=== PATIENT | female | born 1950 | race African-American/Black ===

== ENCOUNTER 2018-02-26 13:07 | Inpatient (IN) | payer MEDICARE, OTHER ==
[~2018-02-26] VITALS: Ht 160 cm; Wt 78.8 kg
--- NOTE | ~2018-02-26 | OP ---
PATIENT NAME: IFTIKHAR SIERRA MEDICAL RECORD: [id number] :51 LOCATION:D.M2 D.2128 ADMISSION DATE:02/26/18 SURGEON: ALE KING MD DATE OF OPERATION: 02/26/2018 OPERATION PERFORMED: Insertion of a left internal jugular HemoSplit tunneled dialysis catheter utilizing ultrasound guidance and fluoroscopy. Also, dressing change of left arm AV fistula and needle aspiration of bleb over the fistula proximal aneurysm. ANESTHESIA: Local per Dr. King with monitoring per BAKELITE MOLDER. 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 PREOPERATIVE NOTE: Ms. Sierra is a 67-year-old -Irish female with end-stage renal disease, who is on chronic hemodialysis in [place] on Thursday, Thursday and Thursday. She has had a fistula in her left arm, I believe this is a brachial translocated basilic vein fistula, which has served her well for a number of years. Over the past 2 weeks, though she has noted increasing size of aneurysms of the fistula, and yesterday despite multiple needle punctures they were unable to dialyze her and she had pain and sudden increase in size of the most proximal aneurysm and developed an area of epidermolysis with a formation of a bulla with dark fluid within it over the proximal aneurysm. She presented here to me through the Emergency Room. She is brought to the operating room today to place a HemoSplit catheter so that she can dialyze today. Plan is to go ahead and ligate the fistula and do whatever else is indicated. Had to be put on hold until tomorrow because of her hyperkalemia this morning. Under no sedation or anesthetic, the patient was placed in supine position and monitored per BAKELITE MOLDER. I examined the right side of the neck with ultrasound and found that the use of previous dialysis catheters had caused a very severe stenosis of that vein at the level of the clavicle. I examined her left side and found a very good internal jugular vein, very suitable for placement of the dialysis catheter. The left side of her neck and chest was then prepped and draped in a sterile manner. I infiltrated skin and the subcutaneous tissues with 1% lidocaine. I made a small incision at the base of the neck and then with ultrasound guidance and micropuncture technique, placed a needle and guidewire directly into the internal jugular vein. Subsequently, a Roadrunner wire was inserted and under fluoroscopy it was advanced into the inferior vena cava. I infiltrated the skin beneath the clavicle with lidocaine, made an incision there and passed a 23 cm long HemoSplit tunneled dialysis catheter through a subcutaneous tunnel up to the primary cervical incision. I then passed serial dilators over the wire under fluoroscopy and last a peelaway dilator introducer. The catheter was then advanced over the wire through the peel-away sheath into the right atrium and upper inferior vena cava. Both lumens were accessed and aspirated, free return of blood confirmed. They were then flushed with saline and last heparin locked. The catheter was sutured to the skin beneath the clavicle with 2-0 Prolene. The cervical wound was closed with interrupted inverted 3-0 Vicryl and Dermabond glue and that site was dressed with Maxorb Ag, Tegaderm and Cavilon skin prep. A standard chlorhexidine central venous dressing was applied over the catheter's entry site. Fluoroscopy demonstrated excellent positioning of the catheter and it was not necessary to do any additional postoperative chest x-ray. The patient may go on to dialysis today and hopefully will be in better electrolyte status for OPERATIVE REPORT [id number] IFTIKHAR SIERRA surgery under general anesthetic tomorrow morning. TRANSINT:[id number] Voice Confirmation ID: [id number] DOCUMENT ID: [id number] ALE KING MD at 0847 CC: MARCEL BAZAN [id number] DICTATION DATE: 02/27/18 1024 RN LONG TERM CARE: 02/27/18 1212 DIS IN 03/02/18 [facility] [address] [id number]
--- NOTE | ~2018-02-26 | OP ---
PATIENT NAME: IFTIKHAR SIERRA MEDICAL RECORD: [id number] :51 LOCATION:D.M2 D.2128 ADMISSION DATE:02/26/18 SURGEON: ALE KING MD DATE OF OPERATION: 02/28/2018 PREOPERATIVE DIAGNOSIS: Thrombosed, inflamed, infected left upper extremity AV fistula, brachial translocated basilic with potential impending rupture. POSTOPERATIVE DIAGNOSIS: Thrombosed, inflamed, infected left upper extremity AV fistula, brachial translocated basilic with potential impending rupture. OPERATION PERFORMED: Ligation of fistula in left arm and excision of fistula. SURGEON: Ale King MD ANESTHESIA: General with LMA per SEBD TEACHER. The patient's lacing string cutter in [place] is Dr. Oro. Local lacing string cutter attending her to this hospitalization is Lane Bazan MD PREOPERATIVE NOTE: Ms. Sierra is a 67-year-old -Mexican female who is on chronic hemodialysis in [place]. Dr. Oro is her lacing string cutter. She has done well with a left upper extremity brachial translocated basilic vein AV fistula. Only began having trouble, she says, about 2 weeks ago. 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 Two weeks ago, she began to have pain and increasing size of the aneurysms, and this past week, she suffered extravasation and has had intermittent bleeding from the puncture sites from last week and from the area of skin necrosis over the fistula. Yesterday, I placed a tunneled dialysis catheter so that she could dialyze. She was hyperkalemic yesterday. Today, she is brought back to the operating room with normal serum potassium level with plans to ligate and excise or evacuate this inflamed and infected fistula. Under anesthesia, the patient was prepped and draped in sterile manner. She is in supine position. I made an incision on the medial aspect of arm and elbow and exposed the neck of the graft. The cephalic vein just above the arterial anastomosis was circumferentially dissected and then doubly ligated with 2-0 silk. I then did the same at the upper end of the fistula in the upper third of the arm. I then made incisions so as to excise the underlying fistula and area of skin necrosis. I did this and obtained hemostasis with electrocautery and with few suture ligatures of Vicryl. The vein proximally and distally was divided and the specimen was sent to pathology. The wound was irrigated with saline and infiltrated and irrigated carefully with 0.25% Marcaine with epinephrine. I mobilized flaps in order to get a primary closure and the closure was done with interrupted inverted 3-0 Vicryl and sherice for skin. Nonadherent pressure dressing was applied and the patient, at that time, awakened and taken to the recovery room. Blood loss during the operation was insignificant, probably 50-100 cc. None was replaced intraoperatively. All sponges, instruments, and needles were accounted for. TRANSINT:[id number] Voice Confirmation ID: [id number] DOCUMENT ID: [id number] OPERATIVE REPORT [id number] IFTIKHAR SIERRA JAMES MD at 0847 CC: LANE BAZAN [id number] DICTATION DATE: 02/28/18 1058 DIRECT MAIL CLERK: 02/28/18 1205 DIS IN 03/02/18 [id number] [place] [address]
[2018-02-26 15:02] LABS: BASOPHILS 0.6 % (0-2); EOSINOPHILS 8.1 % (0-7); HEMATOCRIT 39.2 % (36.0-48.0); HEMOGLOBIN 13.5 g/dL (12-16); IMMATURE GRANULOCYTES 0.2 % (0-5); LYMPHOCYTES 29.4 % (15-50); MCH 30.7 pg (26.0-34.0); MCHC 34.4 g/dL (31.0-37.0); MCV 89.1 fL (80.0-100.0); MEAN PLATELET VOLUME 10.7 fL (7.4-10.4); MONOCYTES 5.8 % (2-11); NEUTROPHILS 55.9 % (40-80); PLATELET COUNT 138 10x3/uL (130-400); WBC 10.2 10x3/uL (4.8-10.8)
[2018-02-26 15:16] LABS: APTT 35.4 SECONDS (22.8-39.4); INR 1.06 (0.85-1.17); PROTIME 13.4 SECONDS (11.6-15.0)
[2018-02-26 15:26] LABS: ALBUMIN 3.6 g/dL (3.4-5.0); ANION GAP 21.2 mmol/L (8-16); BILIRUBIN - TOTAL 0.59 mg/dL (0.2-1.3); CALCIUM 9.2 mg/dL (8.5-10.1); CARBON DIOXIDE 23.3 mmol/L (21.0-32.0); CREATININE - SERUM 12.6 mg/dL (0.6-1.3); POTASSIUM - SERUM 5.5 mmol/L (3.5-5.1); PROTEIN - SERUM 8.7 g/dL (6.4-8.2)
[2018-02-26] MEDS ORDERED: NORVASC5 MG PO (15:48)
[2018-02-26] MEDS ORDERED: VITAMIN B-225 MG PO (15:50)
[2018-02-26] MEDS ORDERED: COLACE100 MG PO (15:51)
[2018-02-26] MEDS ORDERED: GLUCOTROL ER2.5 MG PO (15:52)
[2018-02-26] MEDS ORDERED: HYDROCODON-ACE1 EAC7 PO (15:53)
[2018-02-26] MEDS ORDERED: CHILDREN'S CLARI5 MG PO (15:53)
[2018-02-26] MEDS ORDERED: ATIVAN0.5 MG PO (15:54)
[2018-02-26] MEDS ORDERED: MECLIZINE HCL25 MG PO (15:55)
[2018-02-26] MEDS ORDERED: NEPHRO-VITE RX1 TAB PO (15:56)
[2018-02-26] MEDS ORDERED: RENVELA800 MG PO (15:57)
[2018-02-26] MEDS ORDERED: OCUVITE TABLET1 TA1 PO (15:57)
[2018-02-26] MEDS ORDERED: ZANTAC150 MG PO (15:58)
[2018-02-26] MEDS ORDERED: VITAMIN E400 UNI2 PO (15:59)
[2018-02-26] MEDS ORDERED: VITAMIN B-122500 MCG PO (18:10)
[2018-02-26] MEDS ORDERED: SENSIPAR30 MG PO (18:36)
[2018-02-27] VITALS: BP 174/86
[2018-02-27 00:12] VITALS: BMI 31.2
[2018-02-27 04:00] VITALS: BP 138/77
[2018-02-27 07:34] LABS: BASOPHILS 0.8 % (0-2); HEMATOCRIT 40.3 % (36.0-48.0); HEMOGLOBIN 13.8 g/dL (12-16); IMMATURE GRANULOCYTES 0.3 % (0-5); LYMPHOCYTES 22.9 % (15-50); MCH 30.6 pg (26.0-34.0); MCHC 34.2 g/dL (31.0-37.0); MCV 89.4 fL (80.0-100.0); MEAN PLATELET VOLUME 11.4 fL (7.4-10.4); RBC 4.51 10x6/uL (4.00-5.40); RDW 13.7 % (11.5-14.5); WBC 9.6 10x3/uL (4.8-10.8)
[2018-02-27 07:35] LABS: PLATELET COUNT 166 10x3/uL (130-400)
[2018-02-27 07:48] LABS: ANION GAP 20.1 mmol/L (8-16); CALCIUM 9.2 mg/dL (8.5-10.1); CREATININE - SERUM 13.4 mg/dL (0.6-1.3)
[2018-02-27 07:49] LABS: APTT 36.8 SECONDS (22.8-39.4); INR 1.14 (0.85-1.17); PROTIME 14.2 SECONDS (11.6-15.0)
[2018-02-27 07:51] LABS: POTASSIUM - SERUM 6.1 mmol/L (3.5-5.1)
[2018-02-27 07:59] VITALS: BP 146/89
[2018-02-27 11:06] VITALS: BP 132/98
[2018-02-27 11:34] VITALS: Ht 160 cm; Wt 78.8 kg
[2018-02-27 15:06] VITALS: BP 123/87
[2018-02-27 19:01] LABS: ANION GAP 17.2 mmol/L (8-16); CALCIUM 8.3 mg/dL (8.5-10.1); CARBON DIOXIDE 26.6 mmol/L (21.0-32.0); CREATININE - SERUM 7.2 mg/dL (0.6-1.3)
[2018-02-27 19:02] LABS: POTASSIUM - SERUM 3.8 mmol/L (3.5-5.1)
[2018-02-27 20:00] VITALS: BP 135/81
[2018-02-28] VITALS (16 sets, daily range): BP systolic 99–154; BP diastolic 54–70
[2018-02-28 05:09] LABS: BASOPHILS 0.6 % (0-2); EOSINOPHILS 8.3 % (0-7); HEMATOCRIT 35.4 % (36.0-48.0); HEMOGLOBIN 11.9 g/dL (12-16); IMMATURE GRANULOCYTES 0.3 % (0-5); LYMPHOCYTES 26.3 % (15-50); MCH 29.7 pg (26.0-34.0); MCHC 33.6 g/dL (31.0-37.0); MCV 88.3 fL (80.0-100.0); MEAN PLATELET VOLUME 10.9 fL (7.4-10.4); MONOCYTES 8.8 % (2-11); NEUTROPHILS 55.7 % (40-80); PLATELET COUNT 139 10x3/uL (130-400); RBC 4.01 10x6/uL (4.00-5.40); RDW 13.6 % (11.5-14.5); WBC 7.2 10x3/uL (4.8-10.8)
[2018-02-28 05:28] LABS: ANION GAP 13.7 mmol/L (8-16); CALCIUM 8.4 mg/dL (8.5-10.1); CARBON DIOXIDE 26.7 mmol/L (21.0-32.0); CREATININE - SERUM 10.7 mg/dL (0.6-1.3); POTASSIUM - SERUM 4.4 mmol/L (3.5-5.1)
[2018-03-01] VITALS: BP 88/48
[2018-03-01 04:00] VITALS: BP 95/48
[2018-03-01 08:47] VITALS: BP 99/52
[2018-03-01 13:06] VITALS: BP 106/62
[2018-03-01 20:00] VITALS: BP 112/60
[2018-03-02] VITALS: BP 88/49
[2018-03-02 08:33] VITALS: BP 123/66
[2018-03-02 11:14] LABS: HEP B CORE AB TOTAL Negative (Negative); HEPATITIS C ANTIBODY <0.1 (0.0-0.9)
== END 2018-03-02 17:04 | disposition home or self-care (01) | DRG 252 ==
LOC: D.ER 13:07 → D.M2 17:17
PROVIDERS: Emergency Medicine; Internal Medicine Nephrology; Surgery
PROC: 0JH63XZ Insertion of Tunneled Vascular Access Device into Chest Subcutaneous Tissue and Fascia, Percutaneous Approach (ICD-10-PCS; principal; 2018-02-26)
PROC: 05HN33Z Insertion of Infusion Device into Left Internal Jugular Vein, Percutaneous Approach (ICD-10-PCS; 2018-02-26)
PROC: B544ZZA Ultrasonography of Left Jugular Veins, Guidance (ICD-10-PCS; 2018-02-26)
PROC: B5141ZA Fluoroscopy of Left Jugular Veins using Low Osmolar Contrast, Guidance (ICD-10-PCS; 2018-02-26)
PROC: 5A1D70Z Performance of Urinary Filtration, Intermittent, Less than 6 Hours Per Day (ICD-10-PCS; 2018-02-27)
PROC: 05LF0ZZ Occlusion of Left Cephalic Vein, Open Approach (ICD-10-PCS; 2018-02-28)
PROC: 03B80ZZ Excision of Left Brachial Artery, Open Approach (ICD-10-PCS; 2018-02-28)
DX: T82.7XXA Infection and inflammatory reaction due to other cardiac and vascular devices, implants and grafts, initial encounter (principal); N18.6 End stage renal disease; T82.590A Other mechanical complication of surgically created arteriovenous fistula, initial encounter; I12.0 Hypertensive chronic kidney disease with stage 5 chronic kidney disease or end stage renal disease; E11.22 Type 2 diabetes mellitus with diabetic chronic kidney disease; Z99.2 Dependence on renal dialysis; E87.5 Hyperkalemia

== ENCOUNTER 2018-05-04 06:02 | Day surgery (SDC) | payer MEDICARE, OTHER ==
[~2018-05-04] VITALS: Ht 160 cm; Wt 80.3 kg
--- NOTE | ~2018-05-04 | CN ---
PATIENT NAME:IFTIKHAR SIERRA MEDICAL RECORD: [id number] : 52 LOCATION:[facility] ADMIT DATE: ACCOUNT: [id number] CONSULTING PHYSICIAN: FRIDA VILLELA MD REFERRING PHYSICIAN: MARCEL BAZAN MD DATE OF CONSULTATION: 05/04/2018 CARDIOLOGY CONSULT DIAGNOSES: 1. Preop evaluation. 2. Abnormal ECG. 3. Hypertension. 4. End-stage renal failure, on dialysis. HISTORY: Mrs. Sierra has cardiac symptoms of shortness of breath at approximately one block. She denies any chest pain or chest discomfort. Her EKG has ST-T abnormalities inferiorly. She is set for dialysis catheter today. REVIEW OF SYSTEMS: The patient reports easy bruising but reports no swollen glands. The patient reports no fever, no night sweats, no significant weight gain, no significant weight loss. No significant exercise tolerance. The patient reports no dry eyes, no irritation, no vision change. Patient reports no difficulty hearing and no ear pain. Patient reports no frequent nose bleeds or nose and sinus problems. Patient reports on arm pain on exertion. No shortness of breath while lying down. No history of heart murmur. Patient reports no cough, no wheezing or coughing up blood. Patient reports no abdominal pain, no vomiting. Normal appetite. No diarrhea and not vomiting blood. No nausea and no constipation. Patient reports no incontinence. No difficulty urinating. No hematuria. No increased frequency. Patient reports no muscle aches. No weakness, no arthralgias, no back pain. No swelling of the extremities. Patient reports no abnormal mole, no jaundice, no rashes. Reports no loss of consciousness. No weakness and no numbness. No seizures, dizziness, or headaches. The patient reports no depression, no sleep disturbance, feeling safe in a relationship and no alcohol abuse. Patient reports on fatigue. Reports no runny nose or sinus pressure. No itching, no hives, and no frequent sneezing. PHYSICAL EXAMINATION: GENERAL APPEARANCE: Well-nourished, well-developed, appears stated age. Level of distress, comfortable. PSYCHIATRIC: Mental status, alert, normal affect. Orientation, oriented to time, place and person. EYES: Lids and conjunctiva, noninjected. No discharge, no pallor. ENT: Lips, teeth, gums, normal dentition. Oropharynx, no cyanosis, no pallor. NECK: Carotid arteries, bilateral normal upstroke, no bruits, no thrills. JUGULAR VEINS: No jugular venous pressure or distention. CERVICAL LYMPH NODES: Nontender, nonenlarged. THYROID: Not enlarged. Nontender. No nodules. LUNGS: Respiratory effort, unlabored. CHEST: Normal curvature. No thoracic deformity. No chest wall tenderness. Percussion, resonant. Auscultation, clear. No wheezes, no rales, no rhonchi. CARDIOVASCULAR: Precordial exam, nondisplaced. No heaves or pericardial thrills. Rate and rhythm, regular. Heart sounds, normal S1, normal S2. No S3, no gallop, no rub. Systolic murmur, not heard. Diastolic murmur, not heard. CONSULT REPORT [id number] IFTIKHAR SIERRA EXTREMITIES: No cyanosis, no edema. Peripheral pulses, full and equal in all extremities, except as noted. No bruits appreciated. ABDOMEN: Soft, nondistended. Normal aorta. No bruit. Nontender. No masses. Liver, nontender, no hepatomegaly. Spleen, nontender, no splenomegaly. MUSCULOSKELETAL: No joint tenderness. No joint swelling. No erythema. NEUROLOGICAL: Normal gait, normal strength, normal tone. SKIN: Warm and dry. OVERALL IMPRESSION: Abnormal ECG, very well may suggest ongoing ischemia. Her symptomatology is minimal. It is a low risk surgery from a cardiac standpoint. Proceed with surgery for the dialysis access. We will see her afterwards and set her up for stress testing. TRANSINT:[id number] Voice Confirmation ID: [id number] DOCUMENT ID: [id number] FRIDA VILLELA MD at 1729 CC: [id number] DICTATION DATE: 05/04/18 1156 ELECTRICIAN SUBSTATION: 05/04/18 1224 [facility] [address] [place] [address]
--- NOTE | ~2018-05-04 | OP ---
PATIENT NAME: JEANIE SIERRA MEDICAL RECORD: [id number] :52 LOCATION:[facility] ADMISSION DATE: SURGEON: ALE KING MD DATE OF OPERATION: 05/04/2018 PREOPERATIVE DIAGNOSIS: End-stage renal disease and dependence on hemodialysis and failure prior dialysis access in the left upper extremity. OPERATION PERFORMED: Creation of a Wing type brachiocephalic AV fistula in the right arm. SURGEON: Ale King MD ANESTHESIA: Regional block plus general by GARMENT SUPERVISOR. REFERRED BY: Dr. Bazan. PREOPERATIVE NOTE: Jeanie Sierra is a very nice 68-year-old white female patient of Dr. Giles Marcum, referred to me actually by Dr. Bazan. She lives in [place], [place], who has end-stage renal disease and is on hemodialysis in [place]. She has had several fistulas in the left arm, which have failed. Most recently, I had to excise one for aneurysmal breakdown. She has never had a fistula in the right arm and is brought here today to try to create a fistula in the right arm. She has already been on dialysis for 15 years at age 68. I think we should try to make a fistula for her if possible. DESCRIPTION OF PROCEDURE: Under anesthesia including a regional nerve block, the patient was prepped and draped in sterile manner. I examined her with ultrasound using a Vanessa drain as a proximal venous tourniquet and saw that she had a good cephalic vein in the upper arm and a good brachial artery for a Wing brachiocephalic AV fistula. A transverse antecubital incision was made and the artery and vein mobilized and prepared for anastomosis. The artery was controlled with doubly looped Silastic tapes and the vein was dissected from the surrounding structures, distally ligated and then transected and bevelled. It was flushed with heparinized saline and treated with topical papaverine. The artery was opened for a distance of about 7 mm and an end-to-side anastomosis performed with running 7-0 Prolene and when that anastomosis was completed and the occluding loops and clamps were released, there was minimal flow in the fistula. I ended up reclamping and then reopening the anastomosis and found thrombus there in it. It was uncertain exactly what was wrong, but I excised the end of the vein beveling it again and getting a slightly larger diameter and removed all of the suture material and then did another end-to-side anastomosis with running 7-0 Prolene. The patient at this time was given 3000 units of heparin systemically as well as the artery and vein being flushed with heparinized saline. When the anastomosis was completed, it was treated with Evicel and after 2 minutes, the occluding loops and clamps were released and excellent flow was immediately established in the fistula with good flow in the brachial artery above and below. The wound was irrigated with Ancef/gentamicin solution and closed with interrupted inverted 3-0 Vicryl and running intracuticular 4-0 Stratafix. It was then sealed with Dermabond glue and dressed with Maxorb Ag, Tegaderm, and Cavilon skin prep. The was awakened and extubated and taken to the recovery room in stable OPERATIVE REPORT [id number] JEANIE SIERRA condition. PLAN: The patient will go home today and return to see me in 2 weeks. We will do everything we can to try to get this fistula to a stage where it can be accessed in 6 weeks. This may require interim angiogram with forced maturation angioplasty. The saldana here is we do not want to wait if it is going to be needed as this patient does need to have her tunneled dialysis catheter removed as soon as possible. It is on the left side. THE PATIENT DOES HAVE CONTRAST ALLERGY and we did not do an angiogram today. TRANSINT:[id number] Voice Confirmation ID: [id number] DOCUMENT ID: [id number] ALE KING MD at 1750 CC: MARCEL BAZAN [id number] DICTATION DATE: 05/04/18 1425 PRODUCTION TECHNICIAN: 05/04/18 1449 [facility] [address] [place] [address]
[~2018-05-04 06:02] MED LIST: ATIVAN0.5 MG PO; CHILDREN'S CLARI5 MG PO; COLACE100 MG PO; GLUCOTROL ER2.5 MG PO; HYDROCODON-ACE1 EAC7 PO; MECLIZINE HCL25 MG PO; NEPHRO-VITE RX1 TAB PO; NORVASC5 MG PO; OCUVITE TABLET1 TA1 PO; RENVELA800 MG PO; SENSIPAR30 MG PO; VITAMIN B-122500 MCG PO; VITAMIN B-225 MG PO; VITAMIN E400 UNI2 PO; ZANTAC150 MG PO
[2018-05-04 06:35] LABS: BASOPHILS 0.9 % (0-2); EOSINOPHILS 13.2 % (0-7); HEMATOCRIT 42.7 % (36.0-48.0); HEMOGLOBIN 13.8 g/dL (12-16); IMMATURE GRANULOCYTES 0.3 % (0-5); LYMPHOCYTES 30.1 % (15-50); MCHC 32.3 g/dL (31.0-37.0); MCV 92.8 fL (80.0-100.0); MEAN PLATELET VOLUME 10.5 fL (7.4-10.4); NEUTROPHILS 47.5 % (40-80); PLATELET COUNT 129 10x3/uL (130-400); WBC 9.4 10x3/uL (4.8-10.8)
[2018-05-04 06:43] LABS: ANION GAP 16.3 mmol/L (8-16); CALCIUM 9.2 mg/dL (8.5-10.1); CARBON DIOXIDE 28.1 mmol/L (21.0-32.0); CREATININE - SERUM 7.4 mg/dL (0.6-1.3); POTASSIUM - SERUM 4.4 mmol/L (3.5-5.1)
[2018-05-04 06:51] LABS: APTT 32.1 SECONDS (22.8-39.4); INR 0.97 (0.85-1.17); PROTIME 12.5 SECONDS (11.6-15.0)
[2018-05-04 09:03] VITALS: Ht 160 cm; Wt 80.3 kg
== END 2018-05-04 16:00 | disposition home or self-care (01) ==
LOC: D.OPS 06:02
PROVIDERS: Internal Medicine Nephrology
DX: I12.0 Hypertensive chronic kidney disease with stage 5 chronic kidney disease or end stage renal disease (principal); N18.6 End stage renal disease; Z99.2 Dependence on renal dialysis; R94.31 Abnormal electrocardiogram [ECG] [EKG]; Z01.812 Encounter for preprocedural laboratory examination